=== PATIENT | female | born 1960 | race Caucasian/White ===

== ENCOUNTER 2017-01-17 20:57 | Inpatient (IN) | payer OTHER ==
[~2017-01-17] VITALS: Ht 182.9 cm; Wt 81.6 kg
--- NOTE | 2017-01-17 21:40 | ED GI/GU/ABDOMINAL COMPLAINT ---
History of Present Illness General Chief Complaint: Abdominal Pain/Flank Pain Stated Complaint: CAT SCAN TODAY, DIVERTICULITIS ? Source: patient Exam Limitations: no limitations Vital Signs & Intake/Output Vital Signs & Intake/Output Vital Signs Date Time Temp Pulse Resp B/P B/P Pulse O2 O2 Flow FiO2 Mean Ox Delivery Rate 01/18 0015 96.4 87 20 128/77 96 Room Air 01/17 2259 98 Room Air 01/176 96.8 84 18 140/86 94 Room Air Allergies Coded Allergies: No Known Allergies (01/17/17) Reconcile Medications Alprazolam 0.5 MG TABLET 1 TAB PO PRN ANXIETY (Reported) Ergocalciferol (Vitamin D2) (Vitamin D2) 50,000 UNIT CAPSULE 1 CAP PO QW SUPPLEMENT (Reported) Triage Nurses Notes Reviewed? yes ? n Is pt currently ? No HPI: Patient is a 56-year-old female sent to the emergency department for further evaluation of diverticulitis. Patient reports she began with left lower quadrant abdominal pain approximately 2 weeks ago. Patient was on ciprofloxacin for 10 days and felt improvement. Patient was on a clear liquid diet at that time. Over the past couple of days patient started to advance her diet and reports the pain significantly worsened over the past one day. Patient had a CT scan today at an outpatient radiology office in [place]. Patient received a phone call from her primary doctor and was told that there was a perforation and that she should come to the emergency department for further evaluation. Patient reports pain is currently 7 out of 10, worsens with palpation. Intermittent nausea. Patient had diarrhea 2 weeks ago, no current diarrhea. Patient denies fevers (MIKAELA POOLE) Past History Travel History Traveled to [place] past 21 day No Medical History Any Pertinent Medical History? 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 No (MIKAELA POOLE) Review of Systems Review of Systems Constitutional: Denies: chills, fever. EENTM: Reports: no symptoms. Respiratory: Denies: cough, short of breath. Cardiovascular: Denies: chest pain. GI: Reports: see HPI. Genitourinary: Reports: no symptoms. Musculoskeletal: Denies: back pain. Skin: Reports: no symptoms. Neurological/Psychological: Reports: no symptoms. Hematologic/Endocrine: Reports: no symptoms. Immunologic/Allergic: Reports: no symptoms. (MIKAELA POOLE) Physical Exam Physical Exam General Appearance: well developed/nourished, alert, awake Head: atraumatic, normal appearance Eyes: Bilateral: normal appearance, PERRL, EOMI. Ears, Nose, Throat, Mouth: hearing grossly normal, moist mucous membrane Neck: normal inspection, supple, full range of motion Respiratory: normal breath sounds, chest non-tender, no respiratory distress, lungs clear Cardiovascular: regular rate/rhythm Gastrointestinal: normal bowel sounds, soft, tenderness with mild guarding of the left lower quadrant. palpation of the right lower abdomen causes radiation of pain to the LLQ Back: normal inspection, normal range of motion, no cva tenderness Extremities: normal range of motion Neurologic/Psych: no motor/sensory deficits, awake, alert, oriented x 3, normal gait, normal mood/affect Skin: intact, normal color, warm/dry Core Measures ACS in differential dx? No Severe Sepsis Present: No Septic Shock Present: No (MIKAELA POOLE) Progress Differential Diagnosis: diverticulitis, perforated viscous, sepsis Plan of Care: Orders Procedure Date/time Status LACTIC ACID 01/18 0048 Active Admit to inpatient 01/17 2255 Active LACTIC ACID 01/18 2148 Complete COMPREHENSIVE METABOLIC PANEL 01/18 2148 Complete CBC WITHOUT DIFFERENTIAL 01/18 2148 Complete Laboratory Tests 01/17/17 2200: Anion Gap 11, Estimated GFR > 60, BUN/Creatinine Ratio 26.3 H, Glucose 99, Lactic Acid 1.2, Calcium 9.7, Total Bilirubin 0.6, AST 40 H, ALT 76 H, Alkaline Phosphatase 77, Total Protein 7.7, Albumin 4.5, Globulin 3.2, Albumin/ Globulin Ratio 1.4, CBC w Diff NO MAN DIFF REQ, RBC 4.78, MCV 88.4, MCH 30.3, RDW 12.6, MPV 8.8, Gran % 64.4, Lymphocytes % 23.1, Monocytes % 8.7, Eosinophils % 3.3, Basophils % 0.5, Absolute Granulocytes 4.1, Absolute Lymphocytes 1.5, Absolute Monocytes 0.6, Absolute Eosinophils 0.2, Absolute Basophils 0, PUBS MCHC 34.3 2215: Discussed with Dr. Diaz covering for Dr. Garcia: CT scan report from today at approximately 10AM: mild to moderate diverticulitis with mild perforation in the sigmoid colon, no abscess formation. Surgery paged to discuss. Discussed with Dr. Soria. Discussed with Dr. Borja: have surgical PA evaluate patient. Start on IV antibiotics. If any episodes of tachycardia or fever then needs a repeat scan. (MIKAELA POOLE) Initial ED EKG: none (MIKAELA POOLE) Departure Departure Disposition: STILL A PATIENT Condition: Stable Clinical Impression Primary Impression: Diverticulitis of colon with perforation Qualifiers: Diverticulitis bleeding: without bleeding Qualified Code: K57.20 - Diverticulitis of large intestine with perforation and abscess without bleeding Departure Forms: Customer Survey General Discharge Information Admission Note Spoke With: SHANELL CHAVEZ,MAGNO N. Documentation of Exam: Documentation of any treatments & extenuating circumstances including Concerns Regarding Discharge (functional status, medication knowledge or non-compliance, living conditions, etc.) that warrant an admission rather than observation: IV antibiotics, serial abdominal exams, obtain CT scan from outpatient radiology group. 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 I have also reviewed all the pertinent lab results and diagnostic results. I agree with the findings and the plan of care as documented in the PA's/ICE SKATING TEACHER's documentation. [X] I have reviewed the ED Record and agree with the PA's/ICE SKATING TEACHER's documentation. [] Additions or exceptions (if any) to the PAs/ICE SKATING TEACHER's note and plan are summarized below: [] (NOEMÍ CHAVEZ,LINDA Montes)
[2017-01-17 22:11] LABS: ABSOLUTE BASOPHIL COUNT 0 /CUMM (0.0-0.2); ABSOLUTE EOSINOPHIL COUNT 0.2 /CUMM (0.0-0.7); ABSOLUTE GRANULOCYTE CT 4.1 /CUMM (1.4-6.5); ABSOLUTE LYMPH COUNT 1.5 /CUMM (1.2-3.4); ABSOLUTE MONOCYTE COUNT 0.6 /CUMM (0.10-0.60); BASOPHIL % 0.5 % (0.0-2.0); EOSINOPHIL % 3.3 % (0-5); GRANULOCYTE % 64.4 % (42.2-75.2); HEMATOCRIT 42.2 % (37-47); MEAN CORPUSCULAR HGB 30.3 PG (27.0-31.0); MEAN CORPUSCULAR HGB CONC 34.3 G/DL (33.0-37.0); MEAN CORPUSCULAR VOLUME 88.4 FL (81.0-99.0); MEAN PLATELET VOLUME 8.8 FL (7.4-10.4); PLATELET COUNT 260 /CUMM (130-400); RBC DISTRIBUTION WIDTH 12.6 % (11.5-14.5); RED BLOOD CELL CT 4.78 /CUMM (4.20-5.40); WHITE BLOOD CELL COUNT 6.3 /CUMM (4.8-10.8)
[2017-01-17] MEDS ORDERED: VITAMIN D250000 UNIT PO (22:22)
[2017-01-17] MEDS ORDERED: ALPRAZOLAM0.5 M4 PO (22:23)
--- NOTE | 2017-01-18 00:50 | Admission Core Measures ---
Admission Lab Results I reviewed the following labs: Laboratory Tests 01/17 2200 Chemistry Sodium (137 - 145 mmol/L) 138 Potassium (3.5 - 5.1 mmol/L) 3.8 Chloride (98 - 107 mmol/L) 103 Carbon Dioxide (22 - 30 mmol/L) 24 Anion Gap (5 - 16) 11 BUN (7 - 17 mg/dL) 21 H Creatinine (0.5 - 1.0 mg/dL) 0.8 Estimated GFR (>60 ml/min) > 60 BUN/Creatinine Ratio (7 - 25 %) 26.3 H Glucose (65 - 99 mg/dL) 99 Lactic Acid (0.7 - 2.1 mmol/L) 1.2 Calcium (8.4 - 10.2 mg/dL) 9.7 Total Bilirubin (0.2 - 1.3 mg/dL) 0.6 AST (14 - 36 U/L) 40 H ALT (9 - 52 U/L) 76 H Alkaline Phosphatase (<127 U/L) 77 Total Protein (6.3 - 8.2 g/dL) 7.7 Albumin (3.5 - 5.0 g/dL) 4.5 Globulin (1.9 - 4.2 gm/dL) 3.2 Albumin/Globulin Ratio (1.1 - 2.2 %) 1.4 Hematology CBC w Diff NO MAN DIFF REQ WBC (4.8 - 10.8 /CUMM) 6.3 RBC (4.20 - 5.40 /CUMM) 4.78 Hgb (12.0 - 16.0 G/DL) 14.5 Hct (37 - 47 %) 42.2 MCV (81.0 - 99.0 FL) 88.4 MCH (27.0 - 31.0 PG) 30.3 RDW (11.5 - 14.5 %) 12.6 Plt Count (130 - 400 /CUMM) 260 MPV (7.4 - 10.4 FL) 8.8 Gran % (42.2 - 75.2 %) 64.4 Lymphocytes % (20.5 - 51.1 %) 23.1 Monocytes % (1.7 - 9.3 %) 8.7 Eosinophils % (0 - 5 %) 3.3 Basophils % (0.0 - 2.0 %) 0.5 Absolute Granulocytes (1.4 - 6.5 /CUMM) 4.1 Absolute Lymphocytes (1.2 - 3.4 /CUMM) 1.5 Absolute Monocytes (0.10 - 0.60 /CUMM) 0.6 Absolute Eosinophils (0.0 - 0.7 /CUMM) 0.2 Absolute Basophils (0.0 - 0.2 /CUMM) 0 PUBS MCHC (33.0 - 37.0 G/DL) 34.3 Admission Meds I reviewed the following Meds: Current Medications Sig/Reina Start time Last Medication Dose Stop Time Status Admin Acetaminophen 650 MG Q6P PRN 01/18 0100 UNVr (Tylenol) Ampicillin Sodium/ 3,000 MG Q6 01/18 0600 UNVr Sulbactam Sodium (Unasyn) Sodium Chloride 100 ML (Normal Saline 0.9%) Dextrose/Sodium 1,000 ML .Q8H 01/18 004 UNVr Chloride (D5-Normal Saline) Heparin Sodium 5,000 UNIT Q8 01/18 0600 UNVr (Porcine) Morphine Sulfate 2 MG Q4P PRN 01/18 010 UNVr (Morphine) Morphine Sulfate 4 MG Q4 PRN 01/18 0100 UNVr (Morphine) Ondansetron HCl 4 MG Q8P PRN 01/18 0045 UNVr (Zofran) Acute Coronary Syndrome Inclusion Criteria ACS Diagnosis No Inpatient Core Measures LDL Reminder: If No, please order W/I first 24hr of stay Congestive Heart Failure Inclusion Criteria CHF Diagnosis No Cerebrovascular accident Inclusion Criteria CVA/TIA Diagnosis No Inpatient Core Measures Bedside Swallow Eval Reminder: If BSE failed, place ST order Antithrombotic Reminder: Order Antithrombotic Medication by end of day 2 Antithrombotic Reminder: Document Reason Antithrombotic Not ordered by end of day 2 AFIB/Flutter Reminder: If Present, add to problem list AFIB/Flutter Reminder: Order Anticoag Medication for pts with AFIB/Flutter Atherosclerosis Reminder: If Present, add to problem list LDL Reminder: If No, please order W/I first 24hr of stay PT Order Reminder: If No, please order Venous thromboembolism Inpatient Core Measures VTE Risk Factors: Acute medical illness, Age > 40 No [facility] VTE prophylaxis d/t No contraindications No VTE Pharm Prophylaxis d/t No contraindications Inclusion Criteria - Per Current guidelines, there needs to be overlap - treatment for the first 5 days of Warfarin therapy. - Parenteral Anticoagulation (IV or SC) needs to be - given along with Warfarin therapy. VTE Diagnosis No VTE Type NONE VTE Confirmed by (Test) NONE Problem List As ranked by this Provider includes Assessment & Plan 1. Diverticulitis of colon with perforation HOME MEDS Home Med List Alprazolam 0.5 MG TABLET 1 TAB PO PRN ANXIETY (Reported) Ergocalciferol (Vitamin D2) (Vitamin D2) 50,000 UNIT CAPSULE 1 CAP PO QW SUPPLEMENT (Reported)
--- NOTE | 2017-01-18 01:05 | History & Physical ---
General Information and HPI History of Present Illness: 56-year-old female with known history of diverticulosis on colonoscopy presents to the emergency department with complaint of left lower quadrant pain worsening over the last 2 weeks. Approximately 2 weeks ago she began to have mild left lower quadrant pain. She sought help in her primary care physician's office and was giving a diagnosis of diverticulitis. She did not have any imaging or laboratory data at that time. She was put on a 10 day course of Cipro which she did take. She was also directed to be on a clear liquid diet and was compliant with. She completed her antibiotics and was beginning to feel better. She slowly advance her diet this weekend her regular diet however her pain returned, this time more severe than before. She contacted her primary care physician and he set her up for a CAT scan today. She underwent a CT scan at [facility] in [place] though the imaging and repeat is unavailable to me at this point. Per the ER PA, read from radiology showed diverticulitis of the sigmoid colon with a contained perforation without abscess. She has had mucousy stools and her last bowel movement was yesterday. She is unable to tolerate a regular diet due to increase of abdominal pain. Her pain is primarily bed and left lower quadrant. She has never had to be on antibiotics in the past for diverticulitis, though she did have similar pain to this approximately one year ago that resolved on its own without treatment. She has never had abdominal surgery. She had a colonoscopy approximately 2 years ago that showed diverticulosis and no other abnormalities of the colon. She denies any fevers or chills at home. She has had no chest pain or shortness of breath. 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 Exam & Diagnostic Data Last 24 Hrs of Vital Signs/I&O Vital Signs Date Time Temp Pulse Resp B/P B/P Pulse O2 O2 Flow FiO2 Mean Ox Delivery Rate 01/18 0015 96.4 87 20 128/77 96 Room Air 01/17 2259 98 Room Air 01/17 2206 96.8 84 18 140/86 94 Room Air Physical Exam General Appearance Alert, Oriented X3, Cooperative, No Acute Distress Cardiovascular Regular Rate, Normal S1, Normal S2 Lungs Clear to Auscultation Abdomen OBESE, TENDER TO PALPATION IN LEFT LOWER QUADRANT AND SUPRAPUBIC REGION, MOST TENDER IN LEFT LOWER QUADRANT, NO REBOUND OR GUARDING, BOWELSOUNDS THROUGHOUT Extremities No Edema, No Tenderness/Swelling Last 24 Hrs of Labs/Jony: Laboratory Tests 01/17/17 2200: Anion Gap 11, Estimated GFR > 60, BUN/Creatinine Ratio 26.3 H, Glucose 99, Lactic Acid 1.2, Calcium 9.7, Total Bilirubin 0.6, AST 40 H, ALT 76 H, Alkaline Phosphatase 77, Total Protein 7.7, Albumin 4.5, Globulin 3.2, Albumin/ Globulin Ratio 1.4, CBC w Diff NO MAN DIFF REQ, RBC 4.78, MCV 88.4, MCH 30.3, RDW 12.6, MPV 8.8, Gran % 64.4, Lymphocytes % 23.1, Monocytes % 8.7, Eosinophils % 3.3, Basophils % 0.5, Absolute Granulocytes 4.1, Absolute Lymphocytes 1.5, Absolute Monocytes 0.6, Absolute Eosinophils 0.2, Absolute Basophils 0, PUBS MCHC 34.3 Diagnostic Data Other Results Per verbal read from ED PA: CT abdomen and pelvis with contrast shows mild to moderate diverticulitis of colon with mild perforation in the sigmoid without abscess Assessment/Plan Assessment: 56-year-old female with acute sigmoid diverticulitis, with possible microperforation per read given by ED PA via telephone, though imaging from CT scan is not available, currently stable without significant leukocytosis or fever. PLAN: Admit to general surgery under the care of Sal Borja MD. IV antibiotics. Nothing by mouth. IV fluids. Serial abdominal exams. We will trend laboratory data. We'll obtain CT images from outside radiology department tomorrow. If patient acutely worsenS she'll warrant repeat CT scan overnight. Patient is full code. She understands and is agreement with this plan. Sal Borja MD is aware and will see patient in the morning. As Ranked By This Provider Problem List: 1. Diverticulitis of colon with perforation Qualifiers Diverticulitis bleeding: without bleeding Qualified Code: K57.20 - Diverticulitis of large intestine with perforation and abscess without bleeding Core Measures/Miscellaneous Acute Coronary Syndrome ACS Diagnosis: No Cerebrovascular Accident CVA/TIA Diagnosis: No Congestive Heart Failure CHF Diagnosis: No Venous Thromboembolism VTE Risk Factors: Acute medical illness, Age > 40 [facility] prophylaxis d/t: No contraindications No VTE Pharm Prophylaxis d/t: No contraindications VTE Diagnosis: No VTE Type: NONE VTE Confirmed by (Test): NONE Severe Sepsis Severe Sepsis Present: No Septic Shock Septic Shock Present: No Miscellaneous Documentation Attending Case Discussed With: Primary Care Physician: BRYN OVIEDO MD, I. Patient sees these Specialists NONE Level of Patient Care: General Surgical
[2017-01-18 05:45] LABS: ABSOLUTE BASOPHIL COUNT 0 /CUMM (0.0-0.2); ABSOLUTE EOSINOPHIL COUNT 0.2 /CUMM (0.0-0.7); ABSOLUTE MONOCYTE COUNT 0.4 /CUMM (0.10-0.60); BASOPHIL % 0.4 % (0.0-2.0); GRANULOCYTE % 64.6 % (42.2-75.2); HEMATOCRIT 38.6 % (37-47); MEAN CORPUSCULAR HGB 30.1 PG (27.0-31.0); MEAN CORPUSCULAR HGB CONC 33.6 G/DL (33.0-37.0); MEAN CORPUSCULAR VOLUME 89.7 FL (81.0-99.0); MEAN PLATELET VOLUME 8.3 FL (7.4-10.4); PLATELET COUNT 229 /CUMM (130-400); RBC DISTRIBUTION WIDTH 12.8 % (11.5-14.5); RED BLOOD CELL CT 4.31 /CUMM (4.20-5.40); WHITE BLOOD CELL COUNT 4.7 /CUMM (4.8-10.8)
[2017-01-18 07:32] VITALS: BP 129/77
--- NOTE | 2017-01-18 09:01 | PN- General Surgery ---
Subjective Subjective: The patient was seen this morning. She reports feeling more comfortable and describes her pain more as a pressure feeling rather than a true pain. She has no complaints current time and denies any nausea, fever, or chills. The patient 's we'll contact her son and have him try to get a copy of the CAT scan done as an outpatient. Objective Vital Signs and I&Os Vital Signs Date Time Temp Pulse Resp B/P B/P Pulse O2 O2 Flow FiO2 Mean Ox Delivery Rate 01/19 732 97.0 78 22 129/77 96 Room Air 01/18 0531 95.5 72 18 122/66 94 Room Air 01/18 0015 96.4 87 20 128/77 96 Room Air 01/17 2259 98 Room Air 01/17 2206 96.8 84 18 140/86 94 Room Air Intake & Output 01/18 1600 01/18 0800 01/18 0000 / 1600 01/18 0800 01/17 0000 Intake Total 0 100 Output Total 200 Balance 0 -100 Intake, IV 100 Intake, Oral 0 Output, Urine 200 Patient 180 lb Weight Weight Estimated Measurement Method Physical Exam: Gen.: Alert and in no obvious distress Skin: Warm and dry Abdomen: Soft, nondistended, moderate left lower quadrant and flank tenderness without rebound or guarding, bowel sounds positive. Extremities: Bilateral lower extremities are warm without calf tenderness or significant edema. Assessment/Plan Assessment/Plan Assessment: 56-year-old female been conservatively treated for diverticulitis with microperforation that failed outpatient conservative management. The patient is progressing as expected, her pain is under adequate control, and she remains afebrile with a normalized white count. Plan: Continue nothing by mouth and IV hydration IV antibiotics Follow-up morning laboratory studies Obtain copy of outpatient CAT scan GI and DVT prophylaxis PRN pain medications, antiemetics, and antipyretics Out of bed and ambulate Incentive spirometry Core Measures/Miscellaneous Venous Thromboembolism VTE Risk Factors: Age > 40 VTE Contraindications: No Contraindications VTE Diagnosis: No VTE Type: NONE VTE Confirmed by (Test): NONE Beta Pat Is Beta Pat a Home Med? No Antibiotics Is Patient on Antibiotics? Yes If Yes: infection
[2017-01-18 13:47] VITALS: BP 130/71
[2017-01-18 14:52] VITALS: BP 150/100
[2017-01-18 14:56] VITALS: BP 120/84
[2017-01-18 22:08] VITALS: BP 138/86
--- NOTE | 2017-01-18 23:22 | History & Physical Pre-Op ---
General Information and HPI History of Present Illness: CC: abdominal pain HPI: 56-year-old nondiabetic nonsmoker came to the ER yesterday with left lower quadrant pain and outside CT describing acute sigmoid diverticulitis. This episode started a few weeks prior she is already finished a 10 day course of antibiotics but then had a little bit of pain again and then had the CT scan. She thinks the pain recurred because she started eating of normal full diet again but again the pain is better now, no fevers no sweats no bleeding per rectum pain doesn't radiate it's not constant is not worse on movement, is no family history of diverticulitis. She also has IBS, and had a colonoscopy last year and was told she has diverticulosis. Her bowel movements are not regular. I've reviewed the [facility]. No history of GERD, PUD, bleeding problems, heart disease or issues with anesthesia. Allergies/Medications Allergies: Coded Allergies: No Known Allergies (01/17/17) Home Med list Alprazolam 0.5 MG TABLET 1 TAB PO PRN ANXIETY (Reported) Amoxicillin/Clavulanate Potass (Amox-Clav 875-125 MG Tablet) 875 MG-125 MG TABLET 1 TAB PO BID diverticulitis Ergocalciferol (Vitamin D2) (Vitamin D2) 50,000 UNIT CAPSULE 1 CAP PO QW SUPPLEMENT (Reported) Past History Medical History Neurological: NONE EENT: NONE Cardiovascular: NONE Respiratory: NONE Gastrointestinal: diverticulitis, S/P CHOLECYSTECTOMY Hepatic: NONE Renal: NONE Musculoskeletal: STATUS POST LUMBAR SPINE SURGERY Psychiatric: NONE Endocrine: NONE Blood Disorders: NONE 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 History of MRSA: No History of VRE: No History of CDIFF: No Isolation History: Standard Surgical History Pertinent Surgical History: colonoscopy Past Family/Social History Family History Relations & Conditions if any MOTHER MOTHER Relation not specified for: FH: CAD (coronary artery disease) Uterine cancer Psychosocial History Smoking Status: Never Smoked ETOH Use: denies use Illicit Drug Use: denies illicit drug use Review of Systems Review of Systems: Constitutional: No fever, sweats or weight loss ENMT: No sore throat Cardiovascular: No chest pain, palpitations or leg swelling Respiratory: No shortness of breath, cough, or sputum or dyspnea on exertion GI: No GERD or bleeding per rectum : No dysuria or hematuria Musculoskeletal: No new muscle weakness, bone or joint pain Skin / Breast: No jaundice, rashes or itching Psychiatric: No history of drug or alcohol abuse no depression or anxiety Hematologic / lymphatic system: No problems with excessive bleeding, bruising, or blood clots Exam & Diagnostic Data Last 24 Hrs of Vital Signs/I&O I reviewed I reviewed Vital Signs Date Time Temp Pulse Resp B/P B/P Pulse O2 O2 Flow FiO2 Mean Ox Delivery Rate 01/18 2208 98.4 70 20 138/86 97 01/18 1456 120/84 01/18 1452 97.5 80 20 150/100 97 Room Air 01/18 1347 98.0 74 16 130/71 98 Room Air 01/18 1249 98.7 74 16 130/71 99 Room Air 01/18 1220 98.7 80 20 123/72 98 Room Air 01/18 1133 87 16 116/70 98 Room Air 01/18 1055 97.0 78 16 130/71 99 Room Air 01/18 0928 98.7 80 20 157/81 100 Room Air 01/18 0732 97.0 78 22 129/77 96 Room Air 01/18 0531 95.5 72 18 122/66 94 Room Air 01/18 0015 96.4 87 20 128/77 96 Room Air I reviewed Intake & Output 01/18 1600 01/18 0800 01/18 0000 Intake Total 0 100 Output Total 200 Balance 0 -100 Intake, IV 100 Intake, Oral 0 Output, Urine 200 Patient 180 lb Weight Weight Estimated Measurement Method Physical Exam: Constitutional: pleasant, no acute distress, conversant Eyes: sclera anicteric ENMT: ears and nose atraumatic, moist mucous membranes, good dentition, no lip lesions Neck: Supple, trachea is midline, no cervical or supraclavicular adenopathy and no palpable thyromegaly Cardiovascular: S1, S2, no murmurs, no peripheral edema Respiratory: clear to auscultation with normal respiratory effort and no intercostal retractions GI: abdomen soft, left lower quadrant pain to moderate palpation no rebound, nondistended, no palpable hepatosplenomegaly Extremities / lymphatics: symmetrically warm, free range of motion no peripheral edema, no cervical, supraclavicular, axillary, or inguinal adenopathy Musculoskeletal: Normal gait and station, no digital cyanosis, good muscle strength and tone no atrophy, motor grossly 5 out of 5 throughout Skin: no jaundice, no rashes warm, nondiaphoretic, no areas of erythema or induration Psychiatric: mood and affect are appropriate and alert and oriented to person place and time Last 24 Hrs of Labs/Jony: I reviewed Laboratory Tests 01/18/17 0530: Anion Gap 10, Estimated GFR > 60, BUN/Creatinine Ratio 26.3 H, CBC w Diff NO MAN DIFF REQ, RBC 4.31, MCV 89.7, MCH 30.1, RDW 12.8, MPV 8.3, Gran % 64.6, Lymphocytes % 22.1, Monocytes % 8.9, Eosinophils % 4.0, Basophils % 0.4, Absolute Granulocytes 3.0, Absolute Lymphocytes 1.0 L, Absolute Monocytes 0.4, Absolute Eosinophils 0.2, Absolute Basophils 0, PUBS MCHC 33.6 01/18/17 0110: Lactic Acid 1.1 Diagnostic Data Other Results Per verbal read from ED PA: CT abdomen and pelvis with contrast shows mild to moderate diverticulitis of colon with mild perforation in the sigmoid without abscess Assessment/Plan Assessment/Plan: Acute sigmoid diverticulitis based on history and exam, partially treated, she feels a little bit better now but I urged her to let us admit her because the pain resumed when she started eating again, and we don't have the outside films which described apparently a "mild perforation". So while these are being sought, we will put her on bowel rest IV fluids serial exams serial labs I explained the spectrum of disease to her ranging from very mild outpatient to severe sepsis ICU Herrera's. She's on the lower end of the spectrum for now. As Ranked By This Provider Problem List: 1. Diverticulitis of colon with perforation
[2017-01-19 06:28] VITALS: BP 128/80
--- NOTE | 2017-01-19 07:33 | PN- General Surgery ---
Subjective Subjective: The patient was seen this morning. She reports that her pain is gradually and progressively improving. She is tolerating a clear liquid diet without nausea or change in pain. She is passing flatus but has yet to have a bowel movement. The patient wishes to talk with a dietitian with regards to the diverticular diet. Objective Vital Signs and I&Os Vital Signs Date Time Temp Pulse Resp B/P B/P Pulse O2 O2 Flow FiO2 Mean Ox Delivery Rate 01/19 0628 98.6 75 20 128/80 96 Room Air 01/18 2208 98.4 70 20 138/86 97 05/ 1456 120/84 05/ 1452 97.5 80 20 150/100 97 Room Air 01/18 1347 98.0 74 16 130/71 98 Room Air 01/18 1249 98.7 74 16 130/71 99 Room Air 01/18 1220 98.7 80 20 123/72 98 Room Air 01/18 1133 87 16 116/70 98 Room Air 01/18 1055 97.0 78 16 130/71 99 Room Air 01/18 0928 98.7 80 20 157/81 100 Room Air 01/18 0732 97.0 78 22 129/77 96 Room Air Intake & Output 01/19 0800 05/ 0000 / 1600 / 0800 01/18 0000 / 1600 Intake Total 250 450 0 100 Output Total 400 700 200 Balance -150 -250 0 -100 Intake, IV 250 100 Intake, Oral 450 0 Output, Urine 400 700 200 Patient 180 lb Weight Weight Estimated Measurement Method Physical Exam: Gen.: Alert and in no obvious distress Skin: Warm and dry Abdomen: Soft, nondistended, minimal tenderness to deep palpation without rebound or guarding in the left lower quadrant, bowel sounds positive. Extremities: Bilateral lower extremities are warm without calf tenderness or significant edema Assessment/Plan Assessment/Plan Assessment: 56-year-old female being conservatively managed for diverticulitis with a microperforation. The patient is progressing as expected, her pain and exam are improving, she remains afebrile with a stable white count, and is tolerating a diet without nausea. Plan: Advance to full liquid diet with toast Out of bed and ambulate Continue IV antibiotics GI and DVT prophylaxis Follow-up morning laboratory studies Dietary consultation/education Possible diet advancement later today and discharge if continues to improve. Core Measures/Miscellaneous Venous Thromboembolism VTE Risk Factors: Age > 40 VTE Contraindications: No Contraindications VTE Diagnosis: No VTE Type: NONE VTE Confirmed by (Test): NONE Beta Pat Is Beta Pat a Home Med? No Antibiotics Is Patient on Antibiotics? Yes If Yes: infection
[2017-01-19 09:34] LABS: ABSOLUTE BASOPHIL COUNT 0 /CUMM (0.0-0.2); ABSOLUTE EOSINOPHIL COUNT 0.1 /CUMM (0.0-0.7); ABSOLUTE GRANULOCYTE CT 3.2 /CUMM (1.4-6.5); ABSOLUTE LYMPH COUNT 0.7 /CUMM (1.2-3.4); ABSOLUTE MONOCYTE COUNT 0.2 /CUMM (0.10-0.60); BASOPHIL % 0.3 % (0.0-2.0); EOSINOPHIL % 2.8 % (0-5); HEMATOCRIT 40.6 % (37-47); MEAN CORPUSCULAR HGB 30.5 PG (27.0-31.0); MEAN CORPUSCULAR HGB CONC 34.5 G/DL (33.0-37.0); MEAN CORPUSCULAR VOLUME 88.4 FL (81.0-99.0); MEAN PLATELET VOLUME 8.8 FL (7.4-10.4); PLATELET COUNT 242 /CUMM (130-400); RBC DISTRIBUTION WIDTH 12.2 % (11.5-14.5); RED BLOOD CELL CT 4.59 /CUMM (4.20-5.40); WHITE BLOOD CELL COUNT 4.3 /CUMM (4.8-10.8)
[2017-01-19 14:26] VITALS: BP 128/96
[2017-01-19 22:41] VITALS: BP 130/80
--- NOTE | 2017-01-19 23:45 | PN- General Surgery ---
Subjective Subjective: Follow-up of diverticulitis we started her on regular diet she had some turkey mashed potatoes she says the pain is much better but she still feels pressure on her left side not just lower no fevers no sweats no nausea she had 2 small minimally formed bowel movements today Objective Vital Signs and I&Os I reviewed I reviewed Vital Signs Date Time Temp Pulse Resp B/P B/P Pulse O2 O2 Flow FiO2 Mean Ox Delivery Rate 01/19 2241 98.2 78 18 130/80 95 Room Air 01/19 1426 98.1 67 20 128/96 97 01/19 0628 98.6 75 20 128/80 96 Room Air I reviewed Intake & Output 01/19 1600 01/19 0800 01/19 0000 01/18 1600 01/18 0000 Intake Total 600 250 450 0 100 Output Total 400 700 200 Balance 600 -150 -250 0 -100 Intake, IV 250 100 Intake, Oral 600 450 0 Number 1 Bowel Movements Output, Urine 400 700 200 Patient 180 lb 180 lb Weight Weight Estimated Measurement Method Physical Exam: Constitutional: no acute distress no pain Eyes: sclera anicteric ENMT: moist mucous membranes Cardiovascular: S1-S2 no murmurs no peripheral edema Respiratory: clear to auscultation with normal respiratory effort and no intercostal retractions GI: abdomen soft, minimal tenderness left lower quadrant no rebound nondistended Extremities / lymphatics: free range of motion no peripheral edema Skin: no jaundice no rashes warm, nondiaphoretic Psychiatric: mood and affect are appropriate and alert and oriented to person place and time Current Medications: I reviewed Current Medications Sig/Reina Start time Last Medication Dose Route Stop Time Status Admin Acetaminophen 650 MG Q6P PRN 01/18 0100 AC 01/18 PO 1933 Ampicillin Sodium/ 3,000 MG Q6H 01/18 0500 AC 01/19 Sulbactam Sodium IV 1658 Sodium Chloride 100 ML Heparin Sodium 5,000 UNIT Q8 01/18 06 AC 01/19 (Porcine) SC 2123 Morphine Sulfate 2 MG Q4P PRN 01/18 010 AC IV Morphine Sulfate 4 MG Q4 PRN 01/18 010 AC IV Ondansetron HCl 4 MG Q8P PRN 01/18 0045 AC IV Patient Medication 1 ED .STK-MED ONE 01/19 1404 [place] Teaching ED 01/19 1405 Results Last 48 Hours of Labs: I reviewed Laboratory Tests 01/19 05 0900 0530 Chemistry Sodium (137 - 145 mmol/L) 143 143 Potassium (3.5 - 5.1 mmol/L) 4.1 4.1 Chloride (98 - 107 mmol/L) 105 108 H Carbon Dioxide (22 - 30 mmol/L) 27 25 Anion Gap (5 - 16) 11 10 BUN (7 - 17 mg/dL) 12 21 H Creatinine (0.5 - 1.0 mg/dL) 0.7 0.8 Estimated GFR (>60 ml/min) > 60 > 60 BUN/Creatinine Ratio (7 - 25 %) 17.1 26.3 H Hematology CBC w Diff NO MAN DIFF REQ NO MAN DIFF REQ WBC (4.8 - 10.8 /CUMM) 4.3 L 4.7 L RBC (4.20 - 5.40 /CUMM) 4.59 4.31 Hgb (12.0 - 16.0 G/DL) 14.0 13.0 Hct (37 - 47 %) 40.6 38.6 MCV (81.0 - 99.0 FL) 88.4 89.7 MCH (27.0 - 31.0 PG) 30.5 30.1 RDW (11.5 - 14.5 %) 12.2 12.8 Plt Count (130 - 400 /CUMM) 242 229 MPV (7.4 - 10.4 FL) 8.8 8.3 Gran % (42.2 - 75.2 %) 75.0 64.6 Lymphocytes % (20.5 - 51.1 %) 16.6 L 22.1 Monocytes % (1.7 - 9.3 %) 5.3 8.9 Eosinophils % (0 - 5 %) 2.8 4.0 Basophils % (0.0 - 2.0 %) 0.3 0.4 Absolute Granulocytes (1.4 - 6.5 /CUMM) 3.2 3.0 Absolute Lymphocytes (1.2 - 3.4 /CUMM) 0.7 L 1.0 L Absolute Monocytes (0.10 - 0.60 /CUMM) 0.2 0.4 Absolute Eosinophils (0.0 - 0.7 /CUMM) 0.1 0.2 Absolute Basophils (0.0 - 0.2 /CUMM) 0 0 PUBS MCHC (33.0 - 37.0 G/DL) 34.5 33.6 / 0110 Chemistry Lactic Acid (0.7 - 2.1 mmol/L) 1.1 Assessment/Plan Assessment/Plan Impression is acute diverticulitis no signs of worsening or abscess I would see how she does overnight continue IV antibiotics if she has less pain with then consider discharge but it was increased pain with eating while on oral antibiotics that brought her here. Core Measures/Miscellaneous Venous Thromboembolism VTE Risk Factors: Age > 40 VTE Contraindications: No Contraindications VTE Diagnosis: No VTE Type: NONE VTE Confirmed by (Test): NONE Beta Pat Is Beta Pat a Home Med? No Antibiotics Is Patient on Antibiotics? Yes If Yes: infection
[2017-01-20 06:34] VITALS: BP 124/82
--- NOTE | 2017-01-20 07:21 | PN- General Surgery ---
Subjective Subjective: Patient was seen this morning she reports that her abdominal pain has completely resolved at the current time. She is tolerating a regular diet without nausea. She had a regular bowel movement yesterday without change or increase in pain. She does report she has a brief spasm of pain in the left lower quadrant when she starts to eat which quickly self resolved. She has no other complaints at the current time. Objective Vital Signs and I&Os Vital Signs Date Time Temp Pulse Resp B/P B/P Pulse O2 O2 Flow FiO2 Mean Ox Delivery Rate 01/20 0634 98.2 70 18 124/82 96 Room Air 01/19 2241 98.2 78 18 130/80 95 Room Air 01/19 1426 98.1 67 20 128/96 97 Intake & Output 01/20 0000 01/19 1600 01/19 0000 01/18 1600 Intake Total 720 600 250 450 0 Output Total 400 700 Balance 720 600 -150 -250 0 Intake, IV 120 250 Intake, Oral 600 600 450 0 Number 1 Bowel Movements Output, Urine 400 700 Patient 180 lb Weight Physical Exam: Gen.: Alert and in no obvious distress Skin: Warm and dry Abdomen: Soft, nondistended, mild tenderness to deep palpation in the left lower quadrant without rebound or guarding bowel sounds positive. (Exam has slowly improved from prior) Extremities: Bilateral x-rays are warm without calf tenderness or significant edema. Assessment/Plan Assessment/Plan Assessment: 56-year-old female be concertedly treated for particle perforated diverticulitis. The patient has made adequate progress and is currently tolerating a regular diet. She maintains afebrile with a normalized white count. Plan: Continue current diet Out of bed and ambulate IV antibiotics GI and DVT prophylaxis Questionable discharged with oral antibiotics Plan to be discussed with surgical attending. Core Measures/Miscellaneous Venous Thromboembolism VTE Risk Factors: Age > 40 VTE Contraindications: No Contraindications VTE Diagnosis: No VTE Type: NONE VTE Confirmed by (Test): NONE Beta Pat Is Beta Pat a Home Med? No Antibiotics Is Patient on Antibiotics? Yes If Yes: infection
[2017-01-20] MEDS ORDERED: AMOX-CLAV 875-1 EACH PO (10:13)
--- NOTE | 2017-01-20 10:16 | Patient Discharge Instructions ---
Discharge Instructions General Discharge Information You were seen/treated for: ACUTE MICROPERFORATED DIVERTICULITIS You had these procedures: BOWEL REST, IV ANTIBIOTICS (NO SURGERY) Watch for these problems: FEVER >101, INCREASED ABDOMINAL PAIN, VOMITING, CHEST PAIN, SHORTNESS OF BREATH Diet Continue normal diet: No Recommended Diet: Low Residue Additional DIET Information: LOW RESIDUE DIET WHILE ACUTELY INFLAMMED (AT LEAST 10 DAYS). THEN FOLLOW UP WITH DR. REECE FOR LONG-TERM MANAGEMENT AND RETURN OF HIGH FIBER DIET. Activity Activity Self Limited: Yes Other activity limits: YOUR ACTIVITY MAY BE WITHIN COMFORT LIMITS. Acute Coronary Syndrome Inclusion Criteria At DC or during hospital stay patient has or had the following: ACS DIAGNOSIS No Discharge Core Measures Meds if any: Prescribed or Continued at Discharge Meds if any: NOT Prescribed or Continued at Discharge Congestive Heart Failure Inclusion Criteria At DC or during hospital stay patient has or had the following: CHF DIAGNOSIS No Discharge Core Measures Meds if any: Prescribed or Continued at Discharge Meds if any: NOT Prescribed or Continued at Discharge Cerebrovascular accident Inclusion Criteria At DC or during hospital stay patient has or had the following: CVA/TIA Diagnosis No Discharge Core Measures Meds if any: Prescribed or Continued at Discharge Meds if any: NOT Prescribed or Continued at Discharge Venous thromboembolism Inclusion Criteria VTE Diagnosis No VTE Type NONE VTE Confirmed by (Test) NONE Discharge Core Measures - Per Current guidelines, there needs to be overlap - treatment for the first 5 days of Warfarin therapy. - If discharged on Warfarin prior to 5 days of - overlap therapy, the patient will need to be - assessed for post discharge needs including - *Post discharge parental anticoagulation - *Warfarin and/or parental anticoagulation education - *Follow up date to check INR post discharge At least 5 days overlap therapy as Inpatient No Meds if any: Prescribed or Continued at Discharge Note: Overlap Therapy is Warfarin and Anticoagulant Meds if any: NOT Prescribed or Continued at Discharge
--- NOTE | 2017-01-23 12:57 | Discharge Summary ---
Visit Information Visit Dates Admission Date: 01/17/17 Discharge Date: 01/20/17 Hospital Course Course Attending Physician: SHANELL CHAVEZ,MAGNO Grady Primary Care Physician: BRYN OVIEDO MD, I. Hospital Course: Patient was admitted with acute diverticulitis by report radiology outside facility we didn't have those films initially, they were eventually brought and loaded and I reviewed them on PACS myself there is some stranding around a thickened sigmoid colon with 2 obvious tiny dots of extraluminal gas in the mesentery but overall no free air no abscess and no signs of obstruction. The patient improved with respect to her pain so we advanced her diet and overnight as mentioned she did not have any acute issues no tachycardia no fevers no sweats no increase in the pain with bowel movements are not preceded her followed by pain she still feels a little bit of pressure but in light of her significant improvement in being able to tolerate some diet we will discharge her home and follow her as an outpatient I discussed diet with her try to avoid large portions of high fiber food initially this has to he'll first and then she can reintroduce fiber and restore regular bowel movements, to avoid future episodes. Vital signs today temp 98.2 pulse 70 was patient's 18 blood pressure 124/82 Constitutional: no acute distress no pain Eyes: sclera anicteric ENMT: moist mucous membranes Cardiovascular: S1-S2 no murmurs no peripheral edema Respiratory: clear to auscultation with normal respiratory effort and no intercostal retractions GI: abdomen soft nontender nondistended Extremities / lymphatics: free range of motion no peripheral edema Skin: no jaundice no rashes warm, nondiaphoretic Psychiatric: mood and affect are appropriate and alert and oriented to person place and time No labs today yesterday white blood cell count was 4.3 Impression is as stated above nonoperative management of uncomplicated sigmoid diverticulitis her prolonged history of pain may warrant a closer look and evaluation if she would benefit from a segmental colectomy but this is her first time being hospitalized requiring IV antibiotics we will see how she heals if she has pain with bowel movements and this is suggestion of that area being stenotic causing cramping and decreased caliber in stool then maybe, otherwise if she recovers full normal function she may avoid surgery. Allergies: Coded Allergies: No Known Allergies (01/17/17) Disposition Summary Disposition Principal Diagnosis: Acute sigmoid diverticulitis Additional Diagnosis: None Discharge Disposition: home or self care Discharge Instructions General Discharge Information Code Status: Full Code Patient's Diet: As mentioned above avoid large portions of chewy or high fiber food initially Patient's Activity: Avoid straining as it can exacerbate the situation Follow-Up Instructions/Appts: Next week in the office or sooner if symptoms recur especially with fever or nausea and more pain Medications at Discharge Discharge Medications: Continue taking these medications: Ergocalciferol (Vitamin D2) (Vitamin D2) 50,000 UNIT CAPSULE 1 Capsule ORAL Once a Week Qty = 12 Comments: NOT GIVEN THIS ADMISSION Alprazolam (Alprazolam) 0.5 MG TABLET 1 Tablet ORAL as needed for ANXIETY Qty = 50 Comments: Last Taken:NOT GIVEN THIS ADMISSION Time: Start taking the following new medications: Amoxicillin/Clavulanate Potass (Amox-Clav 875-125 MG Tablet) 875 MG-125 MG TABLET 1 Tablet ORAL TWICE DAILY Qty = 20 No Refills Comments: NOT GIVEN THIS ADMISSION Copies To: SHANELL CHAVEZ,MAGNO Grady
== END 2017-01-20 11:25 | DRG 392 ==
LOC: ERH 20:57 → ERHI 22:55 → 2NA 22:55 → ERHI 01-18 10:18 → ENRESERV 01-18 13:06 → 2NA 01-18 14:27 → ENPENDDIS 01-20 10:26 → 2NA 01-20 11:25
PROVIDERS: Nurse Practitioner; Physician Assistant; Physician Assistant Surgical; ADMIT Surgery
DX: K57.20 Diverticulitis of large intestine with perforation and abscess without bleeding (principal)
CPT/HCPCS: 2NASP; ERO; 36415; 82436; 96365; J1644; J7042